=== PATIENT | female | born 1990 ===

== ENCOUNTER 2019-06-02 09:22 | Emergency (ER) | payer SELFPAY ==
[~2019-06-02] VITALS: Ht 165.1 cm; Wt 80.0 kg
[2019-06-02 12:38] VITALS: BP 122/70
== END 2019-06-02 12:43 | disposition home or self-care (01) ==
LOC: ER 09:22
DX: B34.9 Viral infection, unspecified (principal); J45.909 Unspecified asthma, uncomplicated
CPT/HCPCS: 71045; 81025; 87804; 93005; 99284; Z7610